=== PATIENT | male | born 1975 | race Two or more races ===

== ENCOUNTER → 2023-01-03 10:56 | Outpatient (CLI) | payer OTHER | END | disposition home or self-care (01) | LOC: LAB 10:56 | PROVIDERS: ATTEND Specialist | DX: N18.2 Chronic kidney disease, stage 2 (mild) (principal) ==

== ENCOUNTER 2023-01-07 10:56 | Inpatient (IN) | payer OTHER ==
[~2023-01-07] VITALS: Ht 157.5 cm; Wt 144.2 kg
[2023-01-07] MEDS ORDERED: COZAAR25 MG (11:09)
[2023-01-07] MEDS ORDERED: XIGDUO XR 10 M1 EAC1 (11:10)
[2023-01-07] MEDS ORDERED: GLIMEPIRIDE2 M1 (11:11)
[2023-01-19] MEDS ORDERED: PROCARDIA XL90 MG PO (16:21)
[2023-01-19] MEDS ORDERED: LOSARTAN POTAS100 MG PO (16:21)
[2023-01-19] MEDS ORDERED: GLIMEPIRIDE2 MG PO (16:22)
== END 2023-01-19 17:00 | disposition home or self-care (01) | DRG 638 ==
LOC: ER 10:56 → MEDJ 16:44 → MEDI 01-16 16:02
PROVIDERS: ADMIT Internal Medicine; ATTEND Internal Medicine
PROC: BQ3FZZZ Magnetic Resonance Imaging (MRI) of Left Lower Leg (ICD-10-PCS; 2023-01-08)
PROC: 0HDNXZZ Extraction of Left Foot Skin, External Approach (ICD-10-PCS; principal; 2023-01-15)
DX: E11.621 Type 2 diabetes mellitus with foot ulcer (principal); L03.116 Cellulitis of left lower limb; L97.528 Non-pressure chronic ulcer of other part of left foot with other specified severity; L08.89 Other specified local infections of the skin and subcutaneous tissue; B95.62 Methicillin resistant Staphylococcus aureus infection as the cause of diseases classified elsewhere; B96.89 Other specified bacterial agents as the cause of diseases classified elsewhere; E66.01 Morbid (severe) obesity due to excess calories; R79.89 Other specified abnormal findings of blood chemistry; E78.5 Hyperlipidemia, unspecified; D64.9 Anemia, unspecified; E11.22 Type 2 diabetes mellitus with diabetic chronic kidney disease; N18.30 Chronic kidney disease, stage 3 unspecified; N17.8 Other acute kidney failure; Z20.822 Contact with and (suspected) exposure to COVID-19; I12.9 Hypertensive chronic kidney disease with stage 1 through stage 4 chronic kidney disease, or unspecified chronic kidney disease; Z79.4 Long term (current) use of insulin; E11.21 Type 2 diabetes mellitus with diabetic nephropathy

== ENCOUNTER 2023-04-03 07:34 | Outpatient (CLI) | payer OTHER ==
[~2023-04-03 07:34] MED LIST: COZAAR25 MG; GLIMEPIRIDE2 M1; GLIMEPIRIDE2 MG PO; LOSARTAN POTAS100 MG PO; PROCARDIA XL90 MG PO; XIGDUO XR 10 M1 EAC1
== END 2023-04-03 07:35 | disposition home or self-care (01) ==
LOC: LAB 07:34
PROVIDERS: ATTEND Internal Medicine Cardiovascular Disease
DX: I11.0 Hypertensive heart disease with heart failure (principal); I42.0 Dilated cardiomyopathy; I50.22 Chronic systolic (congestive) heart failure; R06.00 Dyspnea, unspecified

== ENCOUNTER 2023-05-30 14:51 | Inpatient (IN) | payer OTHER ==
[~2023-05-30] VITALS: Ht 175.3 cm; Wt 149.7 kg
[2023-05-30] MEDS ORDERED: NIFEDIPINE20 MG PO (15:19)
[2023-05-30] MEDS ORDERED: GLIMEPIRIDE4 M1 PO (15:19)
[2023-05-30] MEDS ORDERED: XIGDUO XR 5 MG1 EAC1 PO (15:20)
[2023-05-30] MEDS ORDERED: IRBESARTAN300 MG PO (15:20)
== END 2023-06-03 16:55 | disposition home or self-care (01) | DRG 593 ==
LOC: ER 14:51 → MEDJ 18:44
PROVIDERS: ADMIT Internal Medicine; ATTEND Internal Medicine
PROC: BQ3MZZZ Magnetic Resonance Imaging (MRI) of Left Foot (ICD-10-PCS; principal; 2023-06-01)
DX: L97.528 Non-pressure chronic ulcer of other part of left foot with other specified severity (principal); N17.8 Other acute kidney failure; Z68.42 Body mass index [BMI] 45.0-49.9, adult; E11.621 Type 2 diabetes mellitus with foot ulcer; B95.62 Methicillin resistant Staphylococcus aureus infection as the cause of diseases classified elsewhere; D64.9 Anemia, unspecified; E11.22 Type 2 diabetes mellitus with diabetic chronic kidney disease; I12.9 Hypertensive chronic kidney disease with stage 1 through stage 4 chronic kidney disease, or unspecified chronic kidney disease; N18.30 Chronic kidney disease, stage 3 unspecified; Z79.4 Long term (current) use of insulin; E11.610 Type 2 diabetes mellitus with diabetic neuropathic arthropathy; E66.01 Morbid (severe) obesity due to excess calories

== ENCOUNTER 2023-07-22 07:22 | Inpatient (IN) | payer OTHER ==
[~2023-07-22] VITALS: Ht 175.3 cm; Wt 149.7 kg
[~2023-07-22 07:22] MED LIST changes: +GLIMEPIRIDE4 M1 PO; +IRBESARTAN300 MG PO; +NIFEDIPINE20 MG PO; +XIGDUO XR 5 MG1 EAC1 PO
== END 2023-07-31 15:44 | disposition home or self-care (01) | DRG 638 ==
LOC: ER 07:22 → SEC-K 17:34 → MEDJ 19:15
PROVIDERS: Emergency Medicine; Internal Medicine Infectious Disease; ADMIT Internal Medicine; ATTEND Internal Medicine
PROC: 0JBR3ZZ Excision of Left Foot Subcutaneous Tissue and Fascia, Percutaneous Approach (ICD-10-PCS; principal; 2023-07-31)
DX: E11.621 Type 2 diabetes mellitus with foot ulcer (principal); L97.528 Non-pressure chronic ulcer of other part of left foot with other specified severity; Z68.42 Body mass index [BMI] 45.0-49.9, adult; B96.5 Pseudomonas (aeruginosa) (mallei) (pseudomallei) as the cause of diseases classified elsewhere; B96.29 Other Escherichia coli [E. coli] as the cause of diseases classified elsewhere; Z79.4 Long term (current) use of insulin; E11.22 Type 2 diabetes mellitus with diabetic chronic kidney disease; I12.9 Hypertensive chronic kidney disease with stage 1 through stage 4 chronic kidney disease, or unspecified chronic kidney disease; N18.32 Chronic kidney disease, stage 3b; E11.40 Type 2 diabetes mellitus with diabetic neuropathy, unspecified; E78.49 Other hyperlipidemia; N18.31 Chronic kidney disease, stage 3a; E66.01 Morbid (severe) obesity due to excess calories; E87.5 Hyperkalemia; D64.9 Anemia, unspecified; L08.89 Other specified local infections of the skin and subcutaneous tissue

== ENCOUNTER → 2023-12-10 08:17 | Outpatient (CLI) | payer OTHER ==
[2023-12-10 09:39] LABS: HEMATOCRIT 27.2 % (39.0-48.0); MEAN CELL VOLUME 83.8 fL (80.0-100.00); MEAN CORPUSCULAR HGB CONC 32.9 g/dl (32.0-36.0); PLATELET COUNT 310 K/uL (150-450); RED BLOOD COUNT 3.24 M/uL (4.00-6.00); RED CELL DISTRIBUTION WIDTH 15.5 % (11.5-14.5)
[2023-12-10 09:40] LABS: MEAN CORPUSCULAR HEMOGLOBIN 27.4 pg (27.00-32.0)
[2023-12-10 09:41] LABS: HEMOGLOBIN 8.9 g/dL (13-16.00)
[2023-12-10 10:39] LABS: MYCOPLASMA PNEUMONIAE IGM REACTIVE (NO REACTIVE)
[2023-12-10 12:22] LABS: ALBUMIN 2.3 gm/dL (3.4-5.0); BILIRUBIN TOTAL 0.48 mg/dL (0.3-1.2); CALCIUM 8.3 mg/dL (8.5-10.1); CHOL HDL RATIO 6.4 (0-5.0); CREATININE SERUM 2.04 mg/dL (0.70-1.30); GFR 34.88; GLOBULINA 4.2 G/DL (2.4-3.5); POTASSIUM 4.66 mEq/L (3.5-5.1); PROSTATIC SPECIFIC ANTIGEN 0.711 NG/ML (0.010-4.00); TOTAL PROTEIN 6.5 gm/dL (6.4-8.2)
== END | disposition home or self-care (01) ==
LOC: LAB 08:17
PROVIDERS: ATTEND Internal Medicine
DX: Z20.822 Contact with and (suspected) exposure to COVID-19 (principal); J11.1 Influenza due to unidentified influenza virus with other respiratory manifestations; E78.5 Hyperlipidemia, unspecified; N40.0 Benign prostatic hyperplasia without lower urinary tract symptoms; D64.9 Anemia, unspecified

== ENCOUNTER 2023-12-10 12:42 | Inpatient (IN) | payer OTHER ==
[~2023-12-10] VITALS: Ht 152.4 cm; Wt 149.7 kg
[2023-12-10 17:28] LABS: HEMATOCRIT 27.1 % (39.0-48.0); HEMOGLOBIN 8.9 g/dL (13-16.00); MEAN CELL VOLUME 84.7 fL (80.0-100.00); MEAN CORPUSCULAR HEMOGLOBIN 27.8 pg (27.00-32.0); MEAN CORPUSCULAR HGB CONC 32.7 g/dl (32.0-36.0); PLATELET COUNT 302 K/uL (150-450); RED CELL DISTRIBUTION WIDTH 15.3 % (11.5-14.5)
[2023-12-10 17:50] LABS: ALBUMIN 2.2 gm/dL (3.4-5.0); BILIRUBIN TOTAL 0.36 mg/dL (0.3-1.2); BILIRUBIN,CONJUGATED 0.18 mg/dL (0.0-0.2); BILIRUBIN,UNCONJUGATED 0.18 mg/dL (0.0-0.6); CALCIUM 8.6 mg/dL (8.5-10.1); CREATININE SERUM 2.05 mg/dL (0.70-1.30); GFR 34.69; POTASSIUM 4.52 mEq/L (3.5-5.1); TOTAL PROTEIN 7.4 gm/dL (6.4-8.2)
[2023-12-10 23:50] LABS: INR 1.09; PARTIAL THROMBOPLASTIN TIME 33.4 SECONDS (22.0-34.0); PROTHROMBIN TIME 11.4 SECONDS (9.0-11.5)
[2023-12-11 09:54] LABS: URINE APPEARANCE Clear; URINE BILIRRUBIN Negative (NEGATIVE); URINE BLOOD Small; URINE COLOR Yellow; URINE LEUKOCYTE Negative; URINE NITRATE Negative
[2023-12-11 09:55] LABS: URINE BACTERIA 30.2 uL (0.0-1933); URINE EPITHELIAL CELLS 12.6 uL (0.0-38.8); URINE WBC 11.1 uL (0.0-23.2)
[2023-12-11 10:37] LABS: URINE GLUCOSE 250 MG/DL (NEGATIVE); URINE PROTEIN 300 (NEGATIVE)
[2023-12-12 10:31] LABS: URINE APPEARANCE Cloudy; URINE BILIRRUBIN Negative (NEGATIVE); URINE BLOOD Negative; URINE COLOR Yellow; URINE LEUKOCYTE Negative; URINE NITRATE Negative
[2023-12-12 10:35] LABS: URINE BACTERIA 45.3 uL (0.0-1933); URINE EPITHELIAL CELLS 6.9 uL (0.0-38.8); URINE WBC 9.1 uL (0.0-23.2)
[2023-12-12 11:28] LABS: URINE GLUCOSE 250 MG/DL (NEGATIVE); URINE PROTEIN 300 (NEGATIVE)
[2023-12-12 11:29] LABS: URINE CRYSTALS FEW /HPF
[2023-12-12 21:05] LABS: CREATININE SERUM 2.49 mg/dL (0.70-1.30); GFR 27.71; POTASSIUM 5.23 mEq/L (3.5-5.1)
[2023-12-14 12:27] LABS: URINE PROT QUANT 24HR 163.9 MG/DL
[2023-12-14 12:34] LABS: URINE PROT QUANT 24 HR 2663.38 MG/24HR (42-225)
[2023-12-14 12:38] LABS: CREATINE CLEARANCE 46.4 ML/MIN (97-137)
[2023-12-15 06:41] LABS: HEMATOCRIT 24.1 % (39.0-48.0); MEAN CELL VOLUME 85.1 fL (80.0-100.00); PLATELET COUNT 387 K/uL (150-450); RED BLOOD COUNT 2.83 M/uL (4.00-6.00); RED CELL DISTRIBUTION WIDTH 15.6 % (11.5-14.5)
[2023-12-15 06:53] LABS: MEAN CORPUSCULAR HEMOGLOBIN 28.2 pg (27.00-32.0)
[2023-12-15 07:18] LABS: ALBUMIN 1.9 gm/dL (3.4-5.0); BILIRUBIN TOTAL 0.23 mg/dL (0.3-1.2); CREATININE SERUM 2.4 mg/dL (0.70-1.30); GFR 28.92; GLOBULINA 3.9 G/DL (2.4-3.5); MAGNESIUM 2.9 mg/dL (1.8-2.4); PHOSPHOROUS 4.7 mg/dL (2.5-4.9); POTASSIUM 5.22 mEq/L (3.5-5.1); TOTAL PROTEIN 5.8 gm/dL (6.4-8.2)
[2023-12-16 19:49] LABS: INR 1.04; PARTIAL THROMBOPLASTIN TIME 29.9 SECONDS (22.0-34.0); PROTHROMBIN TIME 10.9 SECONDS (9.0-11.5)
[2023-12-17 21:09] LABS: HEMATOCRIT 29.7 % (39.0-48.0); MEAN CORPUSCULAR HEMOGLOBIN 27.4 pg (27.00-32.0); MEAN CORPUSCULAR HGB CONC 32.7 g/dl (32.0-36.0); PLATELET COUNT 396 K/uL (150-450); RED BLOOD COUNT 3.54 M/uL (4.00-6.00); RED CELL DISTRIBUTION WIDTH 15.7 % (11.5-14.5)
[2023-12-17 21:16] LABS: HEMOGLOBIN 9.7 g/dL (13-16.00)
[2023-12-18 08:43] LABS: ALBUMIN 2.2 gm/dL (3.4-5.0); BILIRUBIN TOTAL 0.34 mg/dL (0.3-1.2); C-REACTIVE PROTEIN 8.64 MG/DL (0.00-0.29); CALCIUM 9.3 mg/dL (8.5-10.1); CREATININE SERUM 1.4 mg/dL (0.70-1.30); GFR 53.86; GLOBULINA 4.3 G/DL (2.4-3.5); MAGNESIUM 2.3 mg/dL (1.8-2.4); PHOSPHOROUS 4.3 mg/dL (2.5-4.9); POTASSIUM 5.12 mEq/L (3.5-5.1); TOTAL PROTEIN 6.5 gm/dL (6.4-8.2)
[2023-12-22 08:23] LABS: HEMATOCRIT 29.3 % (39.0-48.0); HEMOGLOBIN 9.5 g/dL (13-16.00); MEAN CELL VOLUME 83.6 fL (80.0-100.00); MEAN CORPUSCULAR HEMOGLOBIN 27.3 pg (27.00-32.0); MEAN CORPUSCULAR HGB CONC 32.6 g/dl (32.0-36.0); PLATELET COUNT 357 K/uL (150-450); RED CELL DISTRIBUTION WIDTH 15.6 % (11.5-14.5)
[2023-12-22 08:45] LABS: ALBUMIN 1.9 gm/dL (3.4-5.0); CALCIUM 8.7 mg/dL (8.5-10.1); CREATININE SERUM 1.29 mg/dL (0.70-1.30); GFR 59.2; PHOSPHOROUS 4.2 mg/dL (2.5-4.9); POTASSIUM 5.1 mEq/L (3.5-5.1)
[2023-12-23 05:30] LABS: CALCIUM 8.9 mg/dL (8.5-10.1); CREATININE SERUM 1.32 mg/dL (0.70-1.30); GFR 57.65; PHOSPHOROUS 4.4 mg/dL (2.5-4.9); POTASSIUM 5.5 mEq/L (3.5-5.1)
== END 2023-12-24 22:11 | disposition home or self-care (01) | DRG 982 ==
LOC: ER 12:43 → MEDJ 21:34
PROVIDERS: General Practice; Internal Medicine Endocrinology, Diabetes & Metabolism; Internal Medicine Infectious Disease; Specialist/Technologist, Other Nephrology; ADMIT Internal Medicine; ATTEND Internal Medicine
PROC: 0JDR0ZZ Extraction of Left Foot Subcutaneous Tissue and Fascia, Open Approach (ICD-10-PCS; principal; 2023-12-11)
PROC: BQ3FZZZ Magnetic Resonance Imaging (MRI) of Left Lower Leg (ICD-10-PCS; 2023-12-11)
PROC: B24BZZZ Ultrasonography of Heart with Aorta (ICD-10-PCS; 2023-12-12)
PROC: 02HV33Z Insertion of Infusion Device into Superior Vena Cava, Percutaneous Approach (ICD-10-PCS; 2023-12-16)
PROC: 30233N1 Transfusion of Nonautologous Red Blood Cells into Peripheral Vein, Percutaneous Approach (ICD-10-PCS; 2023-12-16)
DX: E11.621 Type 2 diabetes mellitus with foot ulcer (principal); L97.429 Non-pressure chronic ulcer of left heel and midfoot with unspecified severity; M86.8X6 Other osteomyelitis, lower leg; Z79.4 Long term (current) use of insulin; N17.9 Acute kidney failure, unspecified; D64.9 Anemia, unspecified; I12.9 Hypertensive chronic kidney disease with stage 1 through stage 4 chronic kidney disease, or unspecified chronic kidney disease; E11.22 Type 2 diabetes mellitus with diabetic chronic kidney disease; E78.5 Hyperlipidemia, unspecified; E66.01 Morbid (severe) obesity due to excess calories; N18.30 Chronic kidney disease, stage 3 unspecified; E11.69 Type 2 diabetes mellitus with other specified complication; B95.61 Methicillin susceptible Staphylococcus aureus infection as the cause of diseases classified elsewhere; B96.5 Pseudomonas (aeruginosa) (mallei) (pseudomallei) as the cause of diseases classified elsewhere; B96.89 Other specified bacterial agents as the cause of diseases classified elsewhere